=== PATIENT | female | born 2000 | race Asian ===

== ENCOUNTER 2022-04-21 07:16 | Emergency (ER) | payer BC, MEDICAID ==
[~2022-04-21] VITALS: Ht 157.5 cm; Wt 95.3 kg
[2022-04-21 07:37] VITALS: BP_SYST 163
--- NOTE | 2022-04-21 07:38 | NUR ---
Pt presents to the ER bib sister from home. CC Uterine pangs. 05/18, cramping to lower abdominal region. Even unlabored respirations, pt denies bleeding, pt denies NVD, pt states 8 weeeks . Pt took 400 mg ibuprofen this 0515 with no relief. No PMHx NKA No current RX
[2022-04-21] MEDS ORDERED: MORPHINE 4 MG INJ. 4 MG/ML VIAL IVP ONE (07:45)
[2022-04-21] MEDS ORDERED: ONDANSETRON HCL 4 MG/2 ML VIAL IVP ONE ×2 (07:45→09:00)
--- NOTE | 2022-04-21 08:00 | NUR ---
ER at bedside examining patient.
[2022-04-21 08:09] LABS: BASOPHILS # (AUTO) 0.1 K/uL (0.0-0.2); BASOPHILS % (AUTO) 0.3 % (0.0-2.0); EOSINOPHILS # (AUTO) 0.1 K/uL (0.0-0.4); EOSINOPHILS % (AUTO) 0.9 % (0.0-4.0); LYMPHOCYTES # (AUTO) 2.3 K/uL (1.0-5.5); LYMPHOCYTES % (AUTO) 14.1 % (20.5-51.5); MEAN CORPUSCULAR VOLUME 86 fL (79.0-98.0); MONOCYTES # (AUTO) 0.8 K/uL (0.0-1.0); MONOCYTES % (AUTO) 4.8 % (1.7-9.3); NEUTROPHILS % (AUTO) 79.9 % (40.0-70.0); PLATELET COUNT (AUTO) 224 K/uL (130-430); RED BLOOD CELL COUNT(AUTO) 4.68 MIL/uL (4.2-6.2); RED CELL DISTRIBUTION WIDTH 13.1 % (9.0-15.0); WHITE BLOOD COUNT (AUTO) 16.3 K/uL (4.8-10.8)
--- NOTE | 2022-04-21 08:13 | NUR ---
PT WITH [employer]IOLOGY [employer] VIA [facility].
[2022-04-21] MEDS ORDERED: KETOROLAC TROMETHAMINE 30 MG VIAL IVP ONE (09:00)
[2022-04-21] MEDS ORDERED: fentaNYL CITRATE/PF 100 MCG/2 ML AMP IVP ONE (09:00)
--- NOTE | 2022-04-21 09:34 | NUR ---
ER at bedside examining patient.
--- NOTE | 2022-04-21 09:47 | NUR ---
Pt has found a position of comfort on right side laying. Pt is calm and [id number].
--- NOTE | 2022-04-21 11:19 | NUR ---
Pt pain has been relieved to 11/16. Pt requests water.
[2022-04-21 11:28] LABS: CALCIUM 9.3 mg/dL (8.4-11.0); CREATININE 1.14 mg/dL (0.55-1.30); POTASSIUM 3.6 mmol/L (3.5-5.1)
[2022-04-21 11:32] LABS: ALBUMIN 4.2 g/dL (3.4-4.8); TOTAL BILIRUBIN 0.5 mg/dL (0.0-1.0)
[2022-04-21] MEDS ORDERED: NAPR-688 PO (12:38)
[2022-04-21] MEDS ORDERED: HYDR-3917 PO (12:38)
--- NOTE | 2022-04-21 12:56 | NUR ---
Patient given written and verbal discharge instructions and verbalizes understanding. ER MD discussed with patient the results and treatment provided. Patient in stable condition. ID arm band removed. Rx of [place] and Naproxen given. Patient educated on pain management and to follow up with PMD. Opportunity for questions provided and answered. Medication side effect fact sheet provided.
[2022-04-21 12:58] VITALS: BP_SYST 163
== END 2022-04-21 12:58 | disposition home or self-care (01) ==
LOC: SED 07:16
DX: O26.891 Other specified pregnancy related conditions, first trimester (principal); Z79.899 Other long term (current) drug therapy; Z3A.08 8 weeks gestation of pregnancy
CPT/HCPCS: 99284; 74176; 96374; 96375; 76801; 80053; 84702; 85025; 36415; 76376; 76817; 96376; J1885; J2405; J3010; J2270

== ENCOUNTER 2023-06-28 07:55 | Inpatient (IN) | payer BC, MEDICAID ==
[~2023-06-28] VITALS: Ht 157.5 cm; Wt 104.3 kg
[~2023-06-28 07:55] MED LIST: HYDR-3917 PO; NAPR-688 PO
[2023-06-28 08:08] VITALS: BP_SYST 134; PULSE 109; RESP 20; TEMP 99.6; O2SAT 100
[2023-06-28] MEDS ORDERED: NACL 0.9% 1,000 ML IV ONE (08:15)
[2023-06-28] MEDS ORDERED: KETOROLAC TROMETHAMINE 30 MG VIAL IVP ONE ×2 (08:15→09:00)
[2023-06-28] MEDS ORDERED: KETOROLAC TROMETHAMINE 30 MG VIAL ONE (08:19)
[2023-06-28] MEDS ORDERED: ONDANSETRON HCL 4 MG/2 ML VIAL IVP ONE (08:30)
[2023-06-28 08:48] LABS: BASOPHILS # (AUTO) 0.1 K/uL (0.0-0.2); BASOPHILS % (AUTO) 0.6 % (0.0-2.0); EOSINOPHILS # (AUTO) 0.1 K/uL (0.0-0.4); EOSINOPHILS % (AUTO) 0.5 % (0.0-4.0); HEMATOCRIT 39.7 % (36-48); HEMOGLOBIN 12.9 g/dL (12.0-16.0); LYMPHOCYTES # (AUTO) 1.9 K/uL (1.0-5.5); LYMPHOCYTES % (AUTO) 11.5 % (20.5-51.5); MEAN CORPUSCULAR HEMOGLOBIN 28 pg (27-31); MEAN CORPUSCULAR HGB CONC 33 % (32-36); MEAN CORPUSCULAR VOLUME 87 fL (79.0-98.0); MONOCYTES # (AUTO) 0.7 K/uL (0.0-1.0); MONOCYTES % (AUTO) 4.4 % (1.7-9.3); NEUTROPHILS # (AUTO) 13.4 K/uL (1.8-7.7); PLATELET COUNT (AUTO) 232 K/uL (130-430); RED BLOOD CELL COUNT(AUTO) 4.59 MIL/uL (4.2-6.2); RED CELL DISTRIBUTION WIDTH 13.2 % (9.0-15.0); WHITE BLOOD COUNT (AUTO) 16.2 K/uL (4.8-10.8)
[2023-06-28 08:51] LABS: BILIRUBIN,URINE NEGATIVE (NEGATIVE); BLOOD, URINE NEGATIVE (NEGATIVE); CLARITY/URINE CLEAR (CLEAR); COLOR,URINE YELLOW (YELLOW); GLUCOSE,URINE NEGATIVE (NEGATIVE); KETONES,URINE TRACE (NEGATIVE); LEUKOCYTE ESTERASE ,URINE NEGATIVE (NEGATIVE); NITRITE, URINE NEGATIVE (NEGATIVE); PH,URINE 7.5 (5.0-8.0); PROTEIN URINE NEGATIVE (NEGATIVE); UROBILINOGEN,URINE 0.2 (0.2-1.0)
[2023-06-28 09:10] LABS: CALCIUM 9.7 mg/dL (8.4-11.0); CREATININE 0.76 mg/dL (0.55-1.30); POTASSIUM 3.3 mmol/L (3.5-5.1)
[2023-06-28 09:14] LABS: BILIRUBIN,DIRECT 0.2 mg/dL (0.0-0.3); TOTAL PROTEIN, SERUM 8.3 g/dL (6.4-8.3)
[2023-06-28] MEDS ORDERED: DIPHENHYDRAMINE INJ 50 MG/ML VIAL IVP ONE (09:15)
[2023-06-28] MEDS ORDERED: cefTRIAXone 1 GM IVPB PREMIX 50 ML IV ONE (10:00)
[2023-06-28] MEDS ORDERED: MORPHINE 4 MG INJ. 4 MG/ML VIAL IVP ONE (10:45)
[2023-06-28] MEDS ORDERED: AMOX500C2 PO (11:30)
[2023-06-28] MEDS ORDERED: ACET-2634 PO (11:30)
[2023-06-28] MEDS ORDERED: ZIT250 PO (11:30)
[2023-06-28 12:36] LABS: BARBITURATE, URINE NEGATIVE (NEG <=200); BENZODIAZEPINE, URINE NEGATIVE (NEG <=150); CANNABINOID, URINE POSITIVE (NEG <=50); COCAINE, URINE NEGATIVE (NEG <=150); METHAMPHETAMINES SCREEN,URINE NEGATIVE (NEG <=500); OPIATE, URINE NEGATIVE (NEG <=100); PHENCYCLIDINE SCREEN,URINE NEGATIVE (NEG <=25); URINE AMPHETAMINE NEGATIVE (NEG <=500); URINE METHADONE NEGATIVE (NEG <=200); URINE OXYCODONE SCREEN NEGATIVE (NEG <=100); URINE PROPOXYPHENE SCREEN NEGATIVE (NEG <=300)
[2023-06-28 12:37] LABS: UR TRICYCLIC ANTIDEPRESSANTS NEGATIVE (NEG <=300)
[2023-06-28] MEDS ORDERED: DOCUSATE SODIUM 100 MG CAPSULE PO PRN (13:15)
[2023-06-28] MEDS ORDERED: ONDANSETRON HCL 4 MG/2 ML VIAL IVP PRN (13:15)
[2023-06-28] MEDS ORDERED: ZOLPIDEM TARTRATE 5 MG TABLET PO PRN (13:15)
[2023-06-28] MEDS ORDERED: KETOROLAC TROMETHAMINE 15 MG VIAL IVP PRN (13:15)
[2023-06-28] MEDS ORDERED: MAGNESIUM SULFATE 50 ML IV PRN (13:15)
[2023-06-28] MEDS ORDERED: MUPIROCIN 2% TOPICAL OINTMENT 22 GM NS PRN (13:15)
[2023-06-28] MEDS ORDERED: LORazepam 2 MG/ML VIAL IVP PRN (13:15)
[2023-06-28] MEDS ORDERED: ACETAMINOPHEN 500 MG TABLET PO PRN ×3 (14:15)
[2023-06-28] MEDS ORDERED: METOCLOPRAMIDE HCL 10 MG/2 ML VIAL IVP ONE (14:30)
[2023-06-28] MEDS ORDERED: AZITHROMYCIN 250 MG TABLET PO ONE (15:00)
[2023-06-28] MEDS: NACL 0.9% 1,000 ML IV SCH (15:13)
[2023-06-28 15:30] VITALS: BP_SYST 136; PULSE 98; RESP 20; TEMP 98.3
[2023-06-28] MEDS ORDERED: HYDROcodone/ACETAMIN 5-325 MG TAB (NORCO/ VICODIN) PO PRN ×2 (16:15)
[2023-06-28] MEDS ORDERED: IPRATROPIUM/ALBUTEROL SULFATE 3 ML AMPUL.NEB (DUONEB) INH PRN (17:30)
[2023-06-28] MEDS ORDERED: NALOXONE HCL 0.4 MG/ML AMP (NARCAN) IVP PRN (17:30)
[2023-06-28] MEDS ORDERED: MORPHINE 2 MG/ML INJ. SYRINGE IVP PRN (17:30)
[2023-06-28 17:34] VITALS: PULSE 98; O2SAT 94
[2023-06-28] MEDS: POTASSIUM CHLORIDE 20 MEQ TAB.PRT.SR PO PRN (18:41)
[2023-06-28 18:46] VITALS: BP_SYST 102; PULSE 108; RESP 20; TEMP 99.3
[2023-06-28 21:00] VITALS: O2SAT 96
[2023-06-28] MEDS: METOCLOPRAMIDE HCL 10 MG/2 ML VIAL IVP SCH (21:16)
[2023-06-29 00:33] VITALS: BP_SYST 138; PULSE 95; RESP 20; TEMP 98.2; O2SAT 98
[2023-06-29] MEDS: NACL 0.9% 1,000 ML IV SCH ×2 (01:54→10:13)
[2023-06-29] MEDS: METOCLOPRAMIDE HCL 10 MG/2 ML VIAL IVP SCH (05:24)
[2023-06-29 05:31] LABS: EOSINOPHILS # (AUTO) 0.1 K/uL (0.0-0.4); HEMOGLOBIN 12.4 g/dL (12.0-16.0); WHITE BLOOD COUNT (AUTO) 9.6 K/uL (4.8-10.8)
[2023-06-29 05:35] LABS: BASOPHILS % (AUTO) 0.4 % (0.0-2.0); HEMATOCRIT 38.7 % (36-48); LYMPHOCYTES # (AUTO) 2.1 K/uL (1.0-5.5); LYMPHOCYTES % (AUTO) 21.8 % (20.5-51.5); MEAN CORPUSCULAR HEMOGLOBIN 28 pg (27-31); MEAN CORPUSCULAR HGB CONC 32 % (32-36); MEAN CORPUSCULAR VOLUME 88 fL (79.0-98.0); MONOCYTES # (AUTO) 0.6 K/uL (0.0-1.0); MONOCYTES % (AUTO) 6.6 % (1.7-9.3); NEUTROPHILS # (AUTO) 6.7 K/uL (1.8-7.7); NEUTROPHILS % (AUTO) 70.2 % (40.0-70.0); PLATELET COUNT (AUTO) 192 K/uL (130-430); RED BLOOD CELL COUNT(AUTO) 4.38 MIL/uL (4.2-6.2); RED CELL DISTRIBUTION WIDTH 13.4 % (9.0-15.0)
[2023-06-29 05:57] LABS: CALCIUM 9.1 mg/dL (8.4-11.0); CREATININE 0.64 mg/dL (0.55-1.30); POTASSIUM 3.3 mmol/L (3.5-5.1)
[2023-06-29 08:30] VITALS: BP_SYST 116; PULSE 80; RESP 17; TEMP 97.4; O2SAT 98
[2023-06-29] MEDS ORDERED: METO-290 PO (08:53)
[2023-06-29] MEDS ORDERED: ZIT250 PO (08:53)
[2023-06-29] MEDS ORDERED: ALBMDI INH (08:53)
[2023-06-29] MEDS ORDERED: AZITHROMYCIN 250 MG TABLET PO SCH (09:00)
[2023-06-29] MEDS ORDERED: cefTRIAXone 1 GM in D5W 50 ML IV SCH (09:00)
[2023-06-29] MEDS: POTASSIUM CHLORIDE 20 MEQ TAB.PRT.SR PO PRN (10:11)
[2023-06-29 11:40] VITALS: BP_SYST 116; PULSE 80; RESP 17; TEMP 97.4; O2SAT 98
== END 2023-06-29 12:30 | disposition home or self-care (01) | DRG 388 ==
LOC: SED 07:55 → SMU 11:55
PROVIDERS: ADMIT General Practice; ATTEND General Practice
DX: K56.7 Ileus, unspecified (principal); J18.9 Pneumonia, unspecified organism; E87.1 Hypo-osmolality and hyponatremia; Z68.41 Body mass index [BMI] 40.0-44.9, adult; E66.01 Morbid (severe) obesity due to excess calories; E87.6 Hypokalemia; R11.10 Vomiting, unspecified; Z88.8 Allergy status to other drugs, medicaments and biological substances; Z79.1 Long term (current) use of non-steroidal anti-inflammatories (NSAID); Z79.899 Other long term (current) drug therapy
CPT/HCPCS: 36415; 71045; 76376; 80048; 80076; 80307; 81001; 81003; 83037; 83605; 83735; 85025; 85610-TC; 85730-TC; 87040; 87086; 99285; J0696; J1200; J1885; J1956; J2270; J2405; J2765; J7060; Q0144

== ENCOUNTER 2023-08-10 12:26 | Emergency (ER) | payer BC ==
[~2023-08-10] VITALS: Ht 157.5 cm; Wt 114.8 kg
[~2023-08-10 12:26] MED LIST changes: +ACET-2634 PO; +ALBMDI INH; +AMOX500C2 PO; +METO-290 PO; +ZIT250 PO
[2023-08-10 12:47] VITALS: BP_SYST 134; PULSE 119; RESP 22; TEMP 98.7; O2SAT 98
[2023-08-10] MEDS ORDERED: NS 1000 ML IV.SOLN IV ONE (14:30)
[2023-08-10] MEDS ORDERED: PENICILLIN G BENZATHINE 1.2 MMU/2 ML SYR IM ONE (14:30)
[2023-08-10] MEDS ORDERED: MORPHINE 4 MG INJ. 4 MG/ML VIAL IVP ONE (14:30)
[2023-08-10] MEDS ORDERED: DEXAMETHASONE SOD PHOSPHATE 10 MG/ML VIAL IVP ONE (14:30)
[2023-08-10 15:12] LABS: HEMATOCRIT 42.5 % (36-48); HEMOGLOBIN 14.3 g/dL (12.0-16.0); MEAN CORPUSCULAR HEMOGLOBIN 30 pg (27-31); MEAN CORPUSCULAR HGB CONC 34 % (32-36); MEAN CORPUSCULAR VOLUME 88 fL (79.0-98.0); PLATELET COUNT (AUTO) 188 K/uL (130-430); RED BLOOD CELL COUNT(AUTO) 4.83 MIL/uL (4.2-6.2); RED CELL DISTRIBUTION WIDTH 13.2 % (9.0-15.0)
[2023-08-10 15:59] LABS: CALCIUM 9.2 mg/dL (8.4-11.0); CREATININE 0.78 mg/dL (0.55-1.30); POTASSIUM 3.8 mmol/L (3.5-5.1)
[2023-08-10 16:03] LABS: BILIRUBIN,DIRECT 0.3 mg/dL (0.0-0.3); TOTAL BILIRUBIN 0.7 mg/dL (0.0-1.0); TOTAL PROTEIN, SERUM 8.8 g/dL (6.4-8.3)
[2023-08-10 16:59] LABS: BAND % (MANUAL) 10 % (0-6); BASOPHILS % (MANUAL) 0 % (0-2); EOSINOPHILS % (MANUAL) 1 % (0-7); LYMPHOCYTES % (MANUAL) 8 % (20-46); MONOCYTES % (MANUAL) 5 % (0-11)
[2023-08-10 17:04] LABS: PLATELET ESTIMATE ADEQUATE (ADEQUATE); TEAR DROP CELLS FEW
[2023-08-10] MEDS ORDERED: HYDR-3927 PO (17:11)
[2023-08-10 17:42] VITALS: BP_SYST 129; PULSE 110; RESP 18; TEMP 98.1; O2SAT 99
== END 2023-08-10 17:39 | disposition home or self-care (01) ==
LOC: SED 12:26
DX: J02.0 Streptococcal pharyngitis (principal); R05.9 Cough, unspecified; R51.9 Headache, unspecified; J45.909 Unspecified asthma, uncomplicated; F17.200 Nicotine dependence, unspecified, uncomplicated; Z88.5 Allergy status to narcotic agent; Z88.6 Allergy status to analgesic agent; Z79.899 Other long term (current) drug therapy
CPT/HCPCS: 99284; 96374; 96361; 85027; 80076; 80048; 85007; 87040; 36415; 96372; J0561; J1100; J2270; J7030

== ENCOUNTER 2023-08-12 11:45 | Emergency (ER) | payer BC ==
[~2023-08-12] VITALS: Ht 157.5 cm; Wt 114.8 kg
[2023-08-12 11:45] VITALS: BP_SYST 130; PULSE 110; RESP 20; TEMP 98.4; O2SAT 96
[~2023-08-12 11:45] MED LIST changes: +HYDR-3927 PO
[2023-08-12 12:41] LABS: COVID19 ANTIGEN SOFIA FIA NEGATIVE (NEGATIVE)
[2023-08-12 12:44] LABS: INFLUENZA TYPE A Negative (NEGATIVE); INFLUENZA TYPE B NEGATIVE (NEGATIVE)
[2023-08-12] MEDS ORDERED: CLINDAMYCIN 600 mg/50mL D5W 50 ML IV ONE (12:45)
[2023-08-12] MEDS ORDERED: AMPICILLIN SODIUM/SULBACTAM NA 3 GM VIAL IM ONE (12:45)
[2023-08-12] MEDS ORDERED: DEXAMETHASONE SOD PHOSPHATE 10 MG/ML VIAL IVP ONE (12:45)
[2023-08-12] MEDS ORDERED: NACL 0.9% 1,000 ML IV ONE (12:45)
[2023-08-12] MEDS ORDERED: PRED20TA PO (12:56)
[2023-08-12] MEDS ORDERED: CLIN-142 PO (12:56)
[2023-08-12] MEDS ORDERED: ONDA-8 TL (12:56)
[2023-08-12] MEDS ORDERED: ONDANSETRON HCL 4 MG/2 ML VIAL ONE (13:01)
[2023-08-12] MEDS ORDERED: AMOX500C2 PO (13:01)
[2023-08-12] MEDS ORDERED: AMPICILLIN SODIUM/SULBACTAM NA 3 GM in NS 100 ML IV ONE (13:15)
[2023-08-12] MEDS ORDERED: AMPICILLIN SODIUM/SULBACTAM NA 3 GM VIAL ONE (13:22)
[2023-08-12] MEDS ORDERED: MORPHINE 2 MG/ML INJ. SYRINGE IVP ONE (13:30)
[2023-08-12 15:07] VITALS: BP_SYST 127; PULSE 88; RESP 20; TEMP 98.4; O2SAT 96
== END 2023-08-12 15:06 | disposition home or self-care (01) ==
LOC: SED 11:45
DX: J36 Peritonsillar abscess (principal); R05.9 Cough, unspecified; J45.909 Unspecified asthma, uncomplicated; Z88.5 Allergy status to narcotic agent; Z88.6 Allergy status to analgesic agent; Z79.899 Other long term (current) drug therapy; Z20.822 Contact with and (suspected) exposure to COVID-19
CPT/HCPCS: 99284; 96374; 96375; 96361; 87426; 36415; 87804 ×2; J0295; J3490; J1100; J2405; J2270; J7030

== ENCOUNTER 2023-11-15 12:12 | Emergency (ER) | payer BC ==
[~2023-11-15] VITALS: Ht 157.5 cm; Wt 114.3 kg
[~2023-11-15 12:12] MED LIST changes: +CLIN-142 PO; +ONDA-8 TL; +PRED20TA PO
[2023-11-15 12:19] VITALS: BP_SYST 138; PULSE 91; RESP 22; TEMP 98.1; O2SAT 99
[2023-11-15 12:51] LABS: BASOPHILS % (AUTO) 0.5 % (0.0-2.0); EOSINOPHILS # (AUTO) 0.1 K/uL (0.0-0.4); EOSINOPHILS % (AUTO) 1.1 % (0.0-4.0); HEMOGLOBIN 12.4 g/dL (12.0-16.0); LYMPHOCYTES # (AUTO) 3.5 K/uL (1.0-5.5); LYMPHOCYTES % (AUTO) 35.9 % (20.5-51.5); MEAN CORPUSCULAR HEMOGLOBIN 30 pg (27-31); MEAN CORPUSCULAR HGB CONC 34 % (32-36); MEAN CORPUSCULAR VOLUME 86 fL (79.0-98.0); MONOCYTES # (AUTO) 0.6 K/uL (0.0-1.0); MONOCYTES % (AUTO) 5.9 % (1.7-9.3); NEUTROPHILS # (AUTO) 5.5 K/uL (1.8-7.7); NEUTROPHILS % (AUTO) 56.6 % (40.0-70.0); PLATELET COUNT (AUTO) 228 K/uL (130-430); RED CELL DISTRIBUTION WIDTH 13.3 % (9.0-15.0); WHITE BLOOD COUNT (AUTO) 9.8 K/uL (4.8-10.8)
[2023-11-15 13:04] LABS: PROTHROMBIN TIME 9.9 SECS (9.5-12.5)
[2023-11-15 13:06] LABS: CALCIUM 8.8 mg/dL (8.4-11.0); CREATININE 0.64 mg/dL (0.55-1.30); POTASSIUM 3.7 mmol/L (3.5-5.1)
[2023-11-15] MEDS: ACETAMINOPHEN 500 MG TABLET PO ONE (14:04)
[2023-11-15 15:05] VITALS: BP_SYST 138; PULSE 91; RESP 22; TEMP 98.1; O2SAT 99
== END 2023-11-15 15:03 | disposition home or self-care (01) ==
LOC: SED 12:12
DX: O26.891 Other specified pregnancy related conditions, first trimester (principal); R10.9 Unspecified abdominal pain; J45.909 Unspecified asthma, uncomplicated; Z3A.09 9 weeks gestation of pregnancy; Z87.442 Personal history of urinary calculi
CPT/HCPCS: 36415; 76856; 80048; 81025; 84702; 85025; 85610; 85730; 86900; 86901; 99284

== ENCOUNTER 2023-12-08 09:54 | Emergency (ER) | payer BC ==
[~2023-12-08] VITALS: Ht 157.5 cm; Wt 114.3 kg
[2023-12-08 09:56] VITALS: BP_SYST 142; PULSE 100; RESP 22; TEMP 98.5; O2SAT 98
[2023-12-08] MEDS: ONDANSETRON HCL 4 MG/2 ML VIAL IVP ONE (10:28)
[2023-12-08] MEDS: NACL 0.9% 1,000 ML IV ONE (10:29)
[2023-12-08 10:37] LABS: BASOPHILS % (AUTO) 0.4 % (0.0-2.0); EOSINOPHILS # (AUTO) 0.1 K/uL (0.0-0.4); EOSINOPHILS % (AUTO) 1.8 % (0.0-4.0); HEMATOCRIT 34.4 % (36-48); HEMOGLOBIN 11.9 g/dL (12.0-16.0); LYMPHOCYTES # (AUTO) 2.8 K/uL (1.0-5.5); LYMPHOCYTES % (AUTO) 33.2 % (20.5-51.5); MEAN CORPUSCULAR HEMOGLOBIN 30 pg (27-31); MEAN CORPUSCULAR HGB CONC 35 % (32-36); MEAN CORPUSCULAR VOLUME 87 fL (79.0-98.0); MONOCYTES # (AUTO) 0.5 K/uL (0.0-1.0); MONOCYTES % (AUTO) 5.7 % (1.7-9.3); NEUTROPHILS # (AUTO) 4.9 K/uL (1.8-7.7); NEUTROPHILS % (AUTO) 58.9 % (40.0-70.0); PLATELET COUNT (AUTO) 217 K/uL (130-430); RED BLOOD CELL COUNT(AUTO) 3.95 MIL/uL (4.2-6.2); RED CELL DISTRIBUTION WIDTH 13.5 % (9.0-15.0); WHITE BLOOD COUNT (AUTO) 8.3 K/uL (4.8-10.8)
[2023-12-08 10:48] LABS: ALBUMIN 3.1 g/dL (3.4-4.8); BILIRUBIN,DIRECT 0.1 mg/dL (0.0-0.3); CALCIUM 8.8 mg/dL (8.4-11.0); CREATININE 0.72 mg/dL (0.55-1.30); POTASSIUM 3.8 mmol/L (3.5-5.1); TOTAL BILIRUBIN 0.2 mg/dL (0.0-1.0); TOTAL PROTEIN, SERUM 7.4 g/dL (6.4-8.3)
[2023-12-08 10:57] LABS: INFLUENZA TYPE A Negative (NEGATIVE); INFLUENZA TYPE B NEGATIVE (NEGATIVE)
[2023-12-08 11:35] LABS: BILIRUBIN,URINE NEGATIVE (NEGATIVE); BLOOD, URINE NEGATIVE (NEGATIVE); CLARITY/URINE CLEAR (CLEAR); COLOR,URINE YELLOW (YELLOW); GLUCOSE,URINE NEGATIVE (NEGATIVE); KETONES,URINE NEGATIVE (NEGATIVE); LEUKOCYTE ESTERASE ,URINE NEGATIVE (NEGATIVE); NITRITE, URINE NEGATIVE (NEGATIVE); PROTEIN URINE NEGATIVE (NEGATIVE); UROBILINOGEN,URINE 0.2 (0.2-1.0)
[2023-12-08] MEDS ORDERED: ACET-2634 PO (12:21)
[2023-12-08 12:43] VITALS: BP_SYST 123; PULSE 93; RESP 22; TEMP 98.5; O2SAT 98
== END 2023-12-08 12:44 | disposition home or self-care (01) ==
LOC: SED 09:54
DX: O99.611 Diseases of the digestive system complicating pregnancy, first trimester (principal); K52.9 Noninfective gastroenteritis and colitis, unspecified; J45.909 Unspecified asthma, uncomplicated; Z3A.11 11 weeks gestation of pregnancy; Z20.822 Contact with and (suspected) exposure to COVID-19; Z87.442 Personal history of urinary calculi; Z88.5 Allergy status to narcotic agent
CPT/HCPCS: 99285; 96374; 76801; 96361; 87426; 80076; 80048; 81001; 83690; 85025; 36415; 87804 ×2; 81003; J2405; J7030